=== PATIENT | male | born 1965 | race Caucasian/White ===

== ENCOUNTER 2016-06-24 12:58 | Day surgery (SDC) | payer OTHER ==
--- NOTE | ~2016-06-24 | EGD ---
EGD REPORT [facility] [address] [address] NAME: MIGUEL MCCORMACK : [birth year] STATUS : REG [facility]#: [id number] AGE: 50 ADM/REG DATE : 06/24/16 MR#: [id number] REPORT SERV DATE: 06/24/16 DICTATED BY: PATIENCE NIEVES DATE: 06/24/16 REPORT STATUS : Draft TRANSCRIBED BY: [employer] DATE: 06/24/16 Endoscopy Center Patient Name: Miguel Mccormack Date of : 1965 Attending MD: PATIENCE NIEVES MD Procedure Date No Time: 06/24/2016 Procedure: Upper GI endoscopy Indications: Dysphagia Referring MD: Que Hobson Medicines: Monitored Anesthesia Care Complications: No immediate complications. Procedure: Pre-Anesthesia Assessment: - ASA Grade Assessment: III - A patient with severe systemic disease. After obtaining informed consent, the endoscope was passed under direct vision. Throughout the procedure, the patient's blood pressure, pulse, and oxygen saturations were monitored continuously. The GIF H190 [id number] was introduced through the mouth, and advanced to the second part of duodenum. The upper GI endoscopy was accomplished without difficulty. The patient tolerated the procedure well. Findings: The upper third of the esophagus, middle third of the esophagus and lower third of the esophagus were normal. A small, fungating mass with and with no stigmata of recent bleeding was found at the gastroesophageal junction. The mass was partially obstructing and partially circumferential (involving one-third of the lumen circumference). Biopsies were taken with a cold forceps for histology. The entire examined stomach was normal. On retroflexion mass was visible but difficult to see. The duodenal bulb was normal. The 2nd part of the duodenum was normal. Impression: - Normal upper third of esophagus, middle third of esophagus and lower third of esophagus. - Partially obstructing, rule out malignancy, esophageal tumor was found at the gastroesophageal junction. Biopsied. - Normal stomach. - Normal duodenal bulb. - Normal 2nd part of the duodenum. EGD REPORT [address] [place]. [address] NAME: MIGUEL MCCORMACK : [birth year] STATUS : REG [facility]#: [id number] AGE: 50 ADM/REG DATE : 06/24/16 MR#: [id number] REPORT SERV DATE: 06/24/16 DICTATED BY: PATIENCE NIEVES DATE: 06/24/16 REPORT STATUS : Draft TRANSCRIBED BY: [employer] DATE: 06/24/16 Recommendation: - Patient has a contact number available for emergencies. The signs and symptoms of potential delayed complications were discussed with the patient. Return to normal activities tomorrow. Written discharge instructions were provided to the patient. - Soft diet. - Continue present medications. - Await pathology results. - Perform a CT scan (computed tomography) of chest with contrast and abdomen with contrast at the next available appointment. - Perform an endoscopic ultrasound (EUS) at the next available appointment. Procedure Code(s): --- Professional --- 32696, Esophagogastroduodenoscopy, flexible, transoral; with biopsy, single or multiple Diagnosis Code(s): --- Professional --- D49.0, Neoplasm of unspecified behavior of digestive system R13.10, Dysphagia, unspecified CPT copyright 2013 [employer]. All rights reserved. The codes documented in this report are preliminary and upon trainer review may be revised to meet current compliance requirements. PATIENCE NIEVES MD 06/24/2016 3:30 PM This report has been signed electronically. Number of Addenda: 0 Note Initiated On: 06/24/2016 3:00 PM Scope Withdrawal Time 0 hours 0 minutes 0 seconds
[~2016-06-24 12:58] MED LIST: ALEVE220 MG PO; TAGAMET 200 MG200 MG PO
[2016-10-20] MEDS ORDERED: REST15 PO (18:55)
[2016-10-20] MEDS ORDERED: COMP10B PO (18:55)
[2016-10-20] MEDS ORDERED: ZOFRANODT8 PO (18:56)
[2016-10-20] MEDS ORDERED: PROTONIX PO (18:56)
[2016-10-20] MEDS ORDERED: MAGIC MOUTHWASH (18:57)
[2016-11-02] MEDS ORDERED: HYCET 7.5 MG-3473 ML PO (15:59)
== END 2016-06-24 23:59 | disposition home or self-care (01) ==
LOC: DMU 12:58
PROVIDERS: Internal Medicine Gastroenterology
PROC: 0DB48ZX Excision of Esophagogastric Junction, Via Natural or Artificial Opening Endoscopic, Diagnostic (ICD-10-PCS; principal; 2016-06-24 14:30)
DX: C16.0 Malignant neoplasm of cardia (principal); R13.10 Dysphagia, unspecified; K21.9 Gastro-esophageal reflux disease without esophagitis
CPT/HCPCS: 88305; 88360

== ENCOUNTER 2016-07-05 08:46 | Day surgery (SDC) | payer OTHER ==
--- NOTE | ~2016-07-05 | EGD ---
EGD REPORT [facility] [address] [address] NAME: MIGUEL MCCORMACK : [birth year] STATUS : REG [facility]#: [id number] AGE: 50 ADM/REG DATE : 07/05/16 MR#: [id number] REPORT SERV DATE: 07/05/16 DICTATED BY: MADDI JARVIS DATE: 07/05/16 REPORT STATUS : Draft [facility]ED [facility]: [facility] DATE: 07/05/16 Endoscopy Center Patient Name: Miguel Mccormack Date of : 1965 Attending MD: MADDI JARVIS, Procedure Date No Time: 07/05/2016 Procedure: Upper EUS Indications: Staging of esophageal adenocarcinoma Referring MD: Que Hobson, PATIENCE NIEVES MD, CATHY CARDENAS III, MD Medicines: Monitored Anesthesia Care Complications: No immediate complications. Estimated blood loss: None. Procedure: Pre-Anesthesia Assessment: - ASA Grade Assessment: III - A patient with severe systemic disease. After obtaining informed consent, the endoscope was passed under direct vision. Throughout the procedure, the patient's blood pressure, pulse, and oxygen saturations were monitored continuously. The Endoscope was introduced through the mouth, and advanced to the second part of duodenum. The GIF H190 [id number] was introduced through the mouth, and advanced to the lower third of esophagus. The upper EUS was accomplished without difficulty. The patient tolerated the procedure well. Findings: Endoscopic Finding : A medium-sized, ulcerating mass with and with no stigmata of recent bleeding was found at the gastroesophageal junction and in the cardia. The mass was partially obstructing and circumferential. It was about 2 cm in length. The exam of the stomach was otherwise normal. The cardia and gastric fundus were otherwise normal on retroflexion. The examined duodenum was endoscopically normal. Endosonographic Finding : A hypoechoic mass was found in the gastroesophageal junction. The lesion was circumferential. The endosonographic borders were well-defined. There was sonographic evidence suggesting invasion into the adventitia (Layer 5). Note the lesion was not traversible. No pathologic lymphadenopathy seen. Impression: - Partially obstructing, malignant esophageal tumor was found at the gastroesophageal junction and in the cardia. - Normal examined duodenum. EGD REPORT [address] [address] NAME: MIGUEL MCCORMACK : [birth year] STATUS : REG [facility] [place] PAT#: [id number] AGE: 50 ADM/REG DATE : 07/05/16 MR#: [id number] REPORT SERV DATE: 07/05/16 DICTATED BY: MADDI JARVIS DATE: 07/05/16 REPORT STATUS : Draft TRANSCRIBED BY: [employer] DATE: 07/05/16 - A mass was found in the gastroesophageal junction. This was staged T3 N0 Mx by endosonographic criteria. Recommendation: - Return to previous diet. - Continue present medications. - Return to referring physician. Procedure Code(s): --- Professional --- 77805, Esophagogastroduodenoscopy, flexible, transoral; with endoscopic ultrasound examination limited to the esophagus, stomach or duodenum, and adjacent structures Diagnosis Code(s): --- Professional --- C16.0, Malignant neoplasm of cardia K22.8, Other specified diseases of esophagus C15.9, Malignant neoplasm of esophagus, unspecified CPT copyright 2013 [employer]. All rights reserved. The codes documented in this report are preliminary and upon personal financial advisor review may be revised to meet current compliance requirements. Attending Participation: I personally performed the entire procedure. MADDI JARVIS, 07/05/2016 2:24 PM Number of Addenda: 1 Note Initiated On: 07/05/2016 1:00 PM Scope Withdrawal Time 0 hours 0 minutes 0 seconds Addendum Number: 1 Addendum Date: 07/05/2016 2:25 PM Impression T3N0MX tumor of GE juction. Resume prior diet and meds. Follow up with referring physician. MADDI JARVIS, 07/05/2016 2:26 PM EGD REPORT [facility] [address] [place] [address] NAME: MIGUEL MCCORMACK : [birth year] STATUS : REG [facility] [place] PAT#: [id number] AGE: 50 ADM/REG DATE : 07/05/16 MR#: [id number] REPORT SERV DATE: 07/05/16 DICTATED BY: MADDI JARVIS DATE: 07/05/16 REPORT STATUS : Draft [facility]ANSCRIBED BY: [facility] DATE: 07/05/16 [facility] [address] [address]
--- NOTE | ~2016-07-05 | EGD ---
EGD REPORT [facility] [address] [address] NAME: MIGUEL MCCORMACK : [birth year] STATUS : REG [facility] [place] PAT#: [id number] AGE: 50 ADM/REG DATE : 07/05/16 MR#: [id number] REPORT SERV DATE: 07/05/16 DICTATED BY: MADDI JARVIS DATE: 07/05/16 REPORT STATUS : Draft TRANSCRIBED BY: [employer] DATE: 07/05/16 Endoscopy Center Patient Name: Miguel Mccormack Date of : 1965 Attending MD: MADDI JARVIS, Procedure Date No Time: 07/05/2016 Procedure: Upper EUS Indications: Staging of esophageal adenocarcinoma Referring MD: Que Hobson, PATIENCE NIEVES MD, CATHY ACRDENAS III, MD Medicines: Monitored Anesthesia Care Procedure: Pre-Anesthesia Assessment: - ASA Grade Assessment: III - A patient with severe systemic disease. After obtaining informed consent, the endoscope was passed under direct vision. Throughout the procedure, the patient's blood pressure, pulse, and oxygen saturations were monitored continuously. The Endoscope was introduced through the mouth, and advanced to the second part of duodenum. The GIF H190 [id number] was introduced through the mouth, and advanced to the lower third of esophagus. The upper EUS was accomplished without difficulty. The patient tolerated the procedure well. Findings: Endoscopic Finding : A medium-sized, ulcerating mass with and with no stigmata of recent bleeding was found at the gastroesophageal junction and in the cardia. The mass was partially obstructing and circumferential. It was about 2 cm in length. The exam of the stomach was otherwise normal. The cardia and gastric fundus were otherwise normal on retroflexion. The examined duodenum was endoscopically normal. Endosonographic Finding : A hypoechoic mass was found in the gastroesophageal junction. The lesion was circumferential. The endosonographic borders were well-defined. There was sonographic evidence suggesting invasion into the adventitia (Layer 5). Note the lesion was not traversible. No pathologic lymphadenopathy seen. Procedure Code(s): --- Professional --- 47493, Esophagogastroduodenoscopy, flexible, transoral; with endoscopic ultrasound examination limited to the esophagus, stomach or duodenum, and adjacent structures EGD REPORT [facility] [address] [address] NAME: MIGUEL MCCORMACK : [birth year] STATUS : REG [facility] [place] PAT#: [id number] AGE: 50 ADM/REG DATE : 07/05/16 MR#: [id number] REPORT SERV DATE: 07/05/16 DICTATED BY: MADDI JARVIS DATE: 07/05/16 REPORT STATUS : Draft TRANSCRIBED BY: [employer] DATE: 07/05/16 Diagnosis Code(s): --- Professional --- C15.9, Malignant neoplasm of esophagus, unspecified CPT copyright 2013 [employer]. All rights reserved. The codes documented in this report are preliminary and upon parts sales representative review may be revised to meet current compliance requirements. Attending Participation: I personally performed the entire procedure. MADDI JARVIS, 07/05/2016 2:24 PM Number of Addenda: 0 Note Initiated On: 07/05/2016 1:00 PM Scope Withdrawal Time 0 hours 0 minutes 0 seconds [address] [address]
--- NOTE | ~2016-07-05 | EGD ---
EGD REPORT [facility] [address] [address] NAME: MIGUEL MCCORMACK : [birth year] STATUS : REG [facility] [place] PAT#: [id number] AGE: 50 ADM/REG DATE : 07/05/16 MR#: [id number] REPORT SERV DATE: 07/05/16 DICTATED BY: MADDI JARVIS DATE: 07/05/16 REPORT STATUS : Draft TRANSCRIBED BY: [employer] DATE: 07/05/16 Endoscopy Center Patient Name: Miguel Mccormack Date of : 1965 Attending MD: MADDI JARVIS, Procedure Date No Time: 07/05/2016 Procedure: Upper EUS Indications: Staging of esophageal adenocarcinoma Referring MD: Que Hobson, PATIENCE NIEVES MD, CATHY CARDENAS III, MD Medicines: Monitored Anesthesia Care Procedure: Pre-Anesthesia Assessment: - ASA Grade Assessment: III - A patient with severe systemic disease. After obtaining informed consent, the endoscope was passed under direct vision. Throughout the procedure, the patient's blood pressure, pulse, and oxygen saturations were monitored continuously. The Endoscope was introduced through the mouth, and advanced to the second part of duodenum. The GIF H190 [id number] was introduced through the mouth, and advanced to the lower third of esophagus. The upper EUS was accomplished without difficulty. The patient tolerated the procedure well. Findings: Endoscopic Finding : A medium-sized, ulcerating mass with and with no stigmata of recent bleeding was found at the gastroesophageal junction and in the cardia. The mass was partially obstructing and circumferential. It was about 2 cm in length. The exam of the stomach was otherwise normal. The cardia and gastric fundus were otherwise normal on retroflexion. The examined duodenum was endoscopically normal. Endosonographic Finding : A hypoechoic mass was found in the gastroesophageal junction. The lesion was circumferential. The endosonographic borders were well-defined. There was sonographic evidence suggesting invasion into the adventitia (Layer 5). Note the lesion was not traversible. No pathologic lymphadenopathy seen. Procedure Code(s): --- Professional --- 23003, Esophagogastroduodenoscopy, flexible, transoral; with endoscopic ultrasound examination limited to the esophagus, stomach or duodenum, and adjacent structures EGD REPORT [address] [address] NAME: MIGUEL MCCORMACK : [birth year] STATUS : REG [facility] [place] PAT#: [id number] AGE: 50 ADM/REG DATE : 07/05/16 MR#: [id number] REPORT SERV DATE: 07/05/16 DICTATED BY: MADDI JARVIS DATE: 07/05/16 REPORT STATUS : Draft TRANSCRIBED BY: [employer] DATE: 07/05/16 Diagnosis Code(s): --- Professional --- C15.9, Malignant neoplasm of esophagus, unspecified CPT copyright 2013 [employer] [place]. All rights reserved. The codes documented in this report are preliminary and upon coder operator review may be revised to meet current compliance requirements. Attending Participation: I personally performed the entire procedure. MADDI JARVIS, 07/05/2016 2:24 PM Number of Addenda: 1 Note Initiated On: 07/05/2016 1:00 PM Scope Withdrawal Time 0 hours 0 minutes 0 seconds Addendum Number: 1 Addendum Date: 07/05/2016 2:25 PM Impression T3N0MX tumor of GE juction. Resume prior diet and meds. Follow up with referring physician. MADDI MATHEUS, 07/05/2016 2:26 PM [address] [place] [address]
[2016-10-20] MEDS ORDERED: REST15 PO (18:55)
[2016-10-20] MEDS ORDERED: COMP10B PO (18:55)
[2016-10-20] MEDS ORDERED: PROTONIX PO (18:56)
[2016-10-20] MEDS ORDERED: ZOFRANODT8 PO (18:56)
[2016-10-20] MEDS ORDERED: MAGIC MOUTHWASH (18:57)
[2016-11-02] MEDS ORDERED: HYCET 7.5 MG-3473 ML PO (15:59)
== END 2016-07-05 23:59 | disposition home or self-care (01) ==
LOC: DMU 08:46
PROVIDERS: Internal Medicine Gastroenterology
PROC: BD41ZZZ Ultrasonography of Esophagus (ICD-10-PCS; 2016-07-05)
PROC: 0DJ08ZZ Inspection of Upper Intestinal Tract, Via Natural or Artificial Opening Endoscopic (ICD-10-PCS; principal; 2016-07-05 13:30)
DX: C16.0 Malignant neoplasm of cardia (principal); K22.8 Other specified diseases of esophagus; K21.9 Gastro-esophageal reflux disease without esophagitis; F17.210 Nicotine dependence, cigarettes, uncomplicated
CPT/HCPCS: C1725

== ENCOUNTER 2016-07-06 05:03 | Inpatient (IN) | payer OTHER ==
[2016-07-05 10:49] LABS: BASOPHILS 0.6 %; BASOPHILS ABSOLUTE 0.05 10/3/uL (0.0-0.16); EOSINOPHILS 2.6 %; EOSINOPHILS ABSOLUTE 0.22 10/3/uL (0.0-0.53); HEMATOCRIT 42.8 % (40.0-51.0); IMMATURE GRANULOCYTES 0.2 %; IMMATURE GRANULOCYTES ABSOLUTE 0.02 10/3/uL (0.0-0.11); LYMPHOCYTES 31.1 %; LYMPHOCYTES ABSOLUTE 2.66 10/3/uL (0.67-4.30); MEAN CORPUSCULAR HEMOGLOB 32.8 pg (26.0-34.0); MEAN CORPUSCULAR VOLUME 93.7 fL (80-100); MEAN PLATELET VOLUME 10.3 fL (9.2-13.0); MONOCYTES 9.2 %; MONOCYTES ABSOLUTE 0.79 10/3/uL (0.21-1.20); NEUTROPHILS 56.3 %; NEUTROPHILS ABSOLUTE 4.81 10/3/uL (2.02-8.40); PLATELET COUNT 342 10/3/uL (150-400); RBC DISTRIBUTION WIDTH 13.4 % (12.0-16.0); RED CELL COUNT 4.57 10/6/uL (4.7-6.1); WHITE BLOOD CELLS 8.6 10/3/uL (4.5-10.5)
[2016-07-05 10:51] LABS: MANUAL DIFF NO %
[2016-07-05 11:01] LABS: CALCIUM, SERUM 8.9 MG/DL (8.5-10.4); CHLORIDE, SERUM 108 MMOL/L (96-112); CO2 (CARBON DIOXIDE) 30 MMOL/L (24-34); CREATININE 0.94 MG/DL (0.70-1.30); GFR AFRICAN AMERICAN 111 ML/MIN (>=60); GFR NON AFRICAN AMERICAN 95 ML/MIN (>=60); POTASSIUM, SERUM 4.5 MMOL/L (3.5-5.3); SGOT(AST) 14 U/L (5-40); SGPT(ALT) 28 U/L (5-65); SODIUM, SERUM 144 MMOL/L (135-148); TOTAL BILIRUBIN 0.4 MG/DL (0-1.2); TOTAL PROTEIN 7.6 G/DL (6.0-8.5)
[2016-07-05 11:02] LABS: A/G RATIO 1.1 (0.7-1.9); ALKALINE PHOSPHATASE 86 U/L (45-117); BUN (BLOOD UREA NITROGEN) 12 MG/DL (6-23); GLOBULIN 3.6 G/DL (2.5-4.1); GLUCOSE, SERUM 94 MG/DL (60-99)
--- NOTE | ~2016-07-06 | CONSULT ---
Radiation Oncology Consult [address] [address] NAME: MIGUEL CMCORMACK : [birth year] STATUS : ADM IN PAT#: [id number] AGE: 50 ADM/REG DATE : 07/06/16 MR#: [id number] REPORT SERV DATE: 07/08/16 DICTATED BY: KRISTEN RAMOS DATE: 07/08/16 REPORT STATUS : Draft TRANSCRIBED BY: [employer] DATE: 07/08/16 RADIATION ONCOLOGY CONSULTATION IN-HOUSE CONSULTATION HISTORY OF PRESENT ILLNESS: Mr. Mccormack is a 50-year-old gentleman, who presents with progressive dysphagia and a 30-pound weight loss. He recently underwent an EGD by Dr. Hernandez that discovered a suspicious lesion involving the GE junction. Biopsy was positive for adenocarcinoma. CT scans of the chest, abdomen, and pelvis revealed nodular thickening of the GE junction and no evidence of regional lymphadenopathy. There was a 1.8 x 1.4 x 1.8 cm soft tissue density along the serosal surface of the posterior gastric fundus thought to be benign. In addition, there was a 4-mm left lower lobe pulmonary nodule. The patient will be undergoing a PET scan later today. He also recently underwent placement of a jejunostomy tube and port by Dr. Peacock. The patient has been referred for consideration of neoadjuvant treatment prior to esophagectomy. He has already seen Dr. Julio César Robins in Medical Oncology. In consultation today, Mr. Mccormack reports persistent dysphagia. He cannot swallow solids, but he can still swallow his spit and most liquids. He denies any significant epigastric pain. MEDICATIONS: See MAR. ALLERGIES: NO KNOWN DRUG ALLERGIES. PAST MEDICAL HISTORY: Significant for smoking history. FAMILY HISTORY: Negative for cancer. 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 He just recently stopped smoking. He continues to drink up to two drinks per day. REVIEW OF SYSTEMS: An extended review of systems was performed, which was negative except as mentioned in HPI. PHYSICAL FINDINGS: GENERAL: Reveals a pleasant middle-aged white male, in no apparent distress. There is no cervical or supraclavicular lymphadenopathy. ABDOMEN: Thin and soft. A short incision is present from the jejunostomy tube. The tube is in place. The right-sided Port-A-Cath is noted in the right infraclavicular region. EXTREMITIES: Without cyanosis, clubbing, or edema. PSYCH: Alert and oriented x3. NEUROLOGIC: Grossly intact. X-RAYS: CT scan of the chest, abdomen, and pelvis dated 06/27/2016 was personally reviewed by me. 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 Radiation Oncology Consult [address] [address] NAME: MIGUEL MCCORMACK : [birth year] STATUS : ADM IN PAT#: [id number] AGE: 50 ADM/REG DATE : 07/06/16 MR#: [id number] REPORT SERV DATE: 07/08/16 DICTATED BY: KRISTEN RAMOS DATE: 07/08/16 REPORT STATUS : Draft TRANSCRIBED BY: AN[employer]EL[employer] DATE: 07/08/16 RECOMMENDATIONS: I suspect that the PET scan will reveal no surprises, therefore, I am comfortable in proceeding with chemoradiation as neoadjuvant treatment for this localized esophageal cancer. Radiation therapy will consist of 5040 cGy in [address] Robins has already decided on weekly chemotherapy for this gentleman. Esophagectomy with followup in approximately six weeks following completion of treatment. Radiation therapy treatment planning was performed today in anticipation of beginning both chemo and radiation on 07/18/2016. INFORMED CONSENT: The benefits, rationale, and possible complications of proposed treatment were discussed. The patient consents to treatment as described. NICHOL/ANGELINA Kristen Ramos M.D. / [id number] CC: Elsie Bermeo III, M.D. James Scott Manton, M.D.
--- NOTE | ~2016-07-06 | PREOPHP ---
PreOp History and Physical [address] [place]. [address] NAME: MIGUEL MEYER : [birth year] STATUS : PRE IN PAT#: [id number] AGE: 50 ADM/REG DATE : MR#: [id number] REPORT SERV DATE: 07/06/16 DICTATED BY: CATHY PEACOCK III DATE: 07/05/16 REPORT STATUS : Draft TRANSCRIBED BY: [employer] DATE: 07/05/16 ADDENDUM: This patient in addition to the above procedure, will undergo subclavian vein Port A-Cath placement. This additional procedure, the risks, benefits, and alternatives, including but not limited to the risk for bleeding, infection, pneumothorax, air embolus, pericardial tamponade, failure of the port to function, infection of the port or subclavian vein thrombosis requiring removal of the port, dislodgement of the Port-A-Cath tubing requiring extraction, and unforeseen complications including deep venous thrombosis, pulmonary embolus, myocardial infarction, stroke, pneumonia, and , have been explained to the patient prior to surgery. His questions were answered. He understands the risks and agrees to surgery as planned. SHAD/ANGELINA Cathy Peacock III, M.D. / [id number] CC: Cathy Peacock III, M.D. DAILY,DENIS
--- NOTE | ~2016-07-06 | PREOPHP ---
PreOp History and Physical [address] [place]. [address] NAME: MIGUEL MEYER : [birth year] STATUS : PRE IN PAT#: [id number] AGE: 50 ADM/REG DATE : MR#: [id number] REPORT SERV DATE: 07/05/16 DICTATED BY: CATHY PEACOCK III DATE: 06/29/16 REPORT STATUS : Draft TRANSCRIBED BY: [employer] DATE: 06/29/16 HISTORY OF PRESENT ILLNESS: This 50-year-old male comes to the operating room for jejunal feeding tube placement to allow for enteral nutrition for support for esophageal cancer. The patient complains five-month history of severe dysphagia. He has lost 32 pounds of weight in the last four months. His workup reveals an adenocarcinoma of the distal esophagus. His workup shows no evidence of metastatic disease. His endoscopy showed a partly obstructing cancer of the distal esophagus. He comes now for a jejunal feeding tube placement to allow for enteral nutrition. The patient is felt to be a candidate for definitive surgery after neoadjuvant chemotherapy and radiation therapy. PAST MEDICAL HISTORY: Unremarkable. ALLERGIES: NONE. MEDICATIONS: None regularly. SOCIAL HISTORY: The patient has a previous history of tobacco use. He has no history of alcohol use. REVIEW OF SYSTEMS: The patient complains of weight loss and back pain. His 14-point review of system is otherwise unremarkable. OBJECTIVE PHYSICAL EXAM: GENERAL: This is a healthy-appearing male, in no acute distress. He is alert and oriented x3. VITAL SIGNS: Blood pressure 120/77, pulse 71, temperature 98.4. HEENT: Unremarkable. Cranial nerves II through XII are normal. NECK: Unremarkable without adenopathy. LUNGS: Clear. CARDIAC: Normal. ABDOMEN: Soft. Nontender. No masses. EXTREMITIES: Normal. LABORATORY DATA: Upper endoscopy shows a fungating mass in the distal esophagus partially obstructing and partially circumferential. Biopsy shows severe adenocarcinoma. CT scan of the abdomen, chest, and pelvis shows a single 0.4 cm lateral left lower lobe pulmonary nodule, unlikely representing solitary site of metastasis. Followup CT in six months as recommended by the radiologist, but a PET scan is pending at this time. There is noted to be an irregular nodular thickening of the distal esophagus consistent with the patient's esophageal cancer. There is noted to be a 1.8 x 1.4 x 1.8 cm mass along the serosal surface of the posterior gastric fundus, thought most likely to be benign. ASSESSMENT: A 50-year-old male with biopsy-proven cancer of the distal esophagus. PLAN: The patient comes to the operating room now for jejunal feeding tube placement to PreOp History and Physical [address] [address] NAME: MIGUEL MEYER : [birth year] STATUS : PRE IN PAT#: [id number] AGE: 50 ADM/REG DATE : MR#: [id number] REPORT SERV DATE: 07/05/16 DICTATED BY: CATHY PEACOCK III DATE: 06/29/16 REPORT STATUS : Draft TRANSCRIBED BY: ANGELINA DATE: 06/29/16 allow for enteral support. This procedure, the risks, benefits, and alternatives, including not limited to the risk for bleeding, infection, enterotomy, injury to abdominal structure, postop small bowel obstruction, ileus, incisional hernia, dehiscence, malfunction of the tube, leakage around the tube, occlusion of the tube requiring revision or replacement, and unforeseen complications including deep venous thrombosis, pulmonary embolus, myocardial infarction, stroke, pneumonia, and , have been explained to the patient prior to surgery. His questions were answered. He clearly understands the risks and agrees to surgery as planned. SHAD/ANGELINA Cathy Peacock III, M.D. / [id number]
--- NOTE | ~2016-07-06 | DS ---
Discharge Summary [facility] [address] [place]. 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 CONSULTATIONS: Ernesto aRmos M.D. PROCEDURES PERFORMED: 1. Right subclavian vein Port-A-Cath placement with fluoroscopy and jejunal feeding tube placement, 07/06/2016. 2. PET whole body scan, 07/08/2016. MEDICATIONS: Aleve 440 mg every 12 hours as needed, Tagamet 200 mg daily as needed, and Percocet 7.5/325 one three times daily as needed. CONDITION AT DISCHARGE: Upon discharge, he did appear to be doing well and had no complaints. DISPOSITION: He had been discharged home to continue a full liquid diet with activity as tolerated. He was to follow up with me in the office and was to call my office for the appointment for two weeks. Home health care was in place upon discharge. HOSPITAL COURSE: This 50-year-old male had complaints of a 5-month history of severe dysphagia. He had lost 32 pounds of weight in the last four months. 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 His workup showed no evidence of metastatic disease. His endoscopy showed a partly obstructing cancer of the distal esophagus. He came in for jejunal feeding tube placement to allow for enteral nutrition. He was felt to be a candidate for definitive surgery after neoadjuvant chemotherapy and radiation therapy. He was admitted for surgery and further evaluation. Upon admission to the hospital, he had been taken to the operating room where he did undergo the above procedure. He tolerated this well and was transferred to the recovery room. On postop day #1, he was afebrile and his vital signs were stable and he had no complaints. He was begun on J-tube feeding. On postop day #2, he had stated that he felt well and wanted to go home. He was tolerating J-tube feedings well and had no new complaints. On 07/08/2016, he did continue to do well and was tolerating J-tube feedings without difficulty. They were increased to the goal rate, and he did state that he was feeling better with less pain. He had also been seen on 07/08/[address] Ernesto Ramos for Radiation Oncology consultation. He did also undergo a PET scan, and Dr. Ramos felt that the PET scan would reveal no surprises and did state that he would be comfortable in proceeding with chemoradiation as neoadjuvant treatment for this localized esophageal cancer. His radiation therapy was to consist of 5040 cGy in [address] Robins had already decided on weekly chemotherapy for this patient. Esophagectomy was to follow up in approximately six weeks following completion of his treatment. The benefits, rationale, and possible complications of the proposed treatment had been discussed with the patient and he did consent to treatment as described. He did remain in stable condition and was then discharged on 07/09/2016 with the above instructions. Discharge Summary [address] [address] NAME: MIGUEL MEYER : 69 STATUS : DIS IN PAT#: [id number] AGE: 50 ADM/REG DATE : 07/06/16 MR#: [id number] REPORT SERV DATE: 07/16/16 DICTATED BY: CATHY CARDENAS III DATE: 07/15/16 REPORT STATUS : Draft TRANSCRIBED BY: JUAN LUISL DATE: 07/15/16 Information collected by: Ingrid WileyIRicardoT. I submit the above information as my discharge summary. RW/JUAN LUISL Cathy Cardenas III, M.D. / [id number] CC: Elsie Bermeo III, MD Eric Ellis, M.D. Derek W Holland, M.D.
--- NOTE | ~2016-07-06 | OP ---
Record Of Operation [facility] [address] [place]. [address] NAME: MIGUEL MEYER : 69 STATUS : ADM IN PAT#: [id number] AGE: 50 ADM/REG DATE : 07/06/16 MR#: [id number] REPORT SERV DATE: 07/06/16 DICTATED BY: CATHY CARDENAS III DATE: 07/06/16 REPORT STATUS : Draft TRANSCRIBED BY: MODL DATE: 07/06/16 DATE OF PROCEDURE: 07/06/2016 PREOPERATIVE DIAGNOSES: T3 esophageal cancer with need for enteral feeding due to severe weight loss and esophageal obstruction and need for Port-A-Cath placement to allow for chronic IV access for chemotherapy. POSTOPERATIVE DIAGNOSES: T3 esophageal cancer with need for enteral feeding due to severe weight loss and esophageal obstruction and need for Port-A-Cath placement to allow for chronic IV access for chemotherapy. PROCEDURE: Right subclavian vein Port-A-Cath placement with fluoroscopy and jejunal feeding tube placement. SURGEON: Cathy Cardenas M.D. ANESTHESIA: General with intubation. COMPLICATIONS: None. ESTIMATED BLOOD LOSS: 5 mL. SPECIMENS: None. DRAINS: None. LAP AND SPONGE COUNT: Correct x3. BRIEF HISTORY: This 50-year-old male was recently diagnosed with distal esophageal cancer associated with high-grade esophageal obstruction and weight loss. His workup showed no evidence for metastatic disease. It was felt that Port-A-Cath placement was indicated to allow for chronic IV access for chemotherapy and jejunal feeding tube placement was indicated to allow for enteral nutrition during this time. The patient was felt to be a candidate for definitive [place] esophagogastrectomy once he has completed his preoperative treatment. Regarding the surgery, the procedure, risks, benefits, and alternatives, including but not limited to, the risk for bleeding, infection, pneumothorax, air embolus, pericardial tamponade, dislodgement of tubing requiring extraction, failure of the Port-A-Cath to function, infection of the port, or subclavian vein thrombosis requiring removal of the port, dislodgement of tubing requiring extraction, and unforeseen complications including deep venous thrombosis, pulmonary embolus, myocardial infarction, stroke, pneumonia, and , were explained to the patient prior to surgery. Regarding the jejunal feeding tube placement, the risk for bleeding, infection, enterotomy, injury to abdominal structure, postop small bowel obstruction, ileus, incisional hernia, dehiscence, failure of the tube to function, migration or occlusion of the tube requiring revision or replacement, leakage Record Of Operation [facility] [address] [place]. [address] NAME: MIGUEL MEYER : 69 STATUS : ADM IN PAT#: [id number] AGE: 50 ADM/REG DATE : 07/06/16 MR#: [id number] REPORT SERV DATE: 07/06/16 DICTATED BY: CATHY CARDENAS III DATE: 07/06/16 REPORT STATUS : Draft TRANSCRIBED BY: MODRadha DATE: 07/06/16 around the tube requiring revision or replacement, and unforeseen complications including deep venous thrombosis, pulmonary embolus, myocardial infarction, stroke, pneumonia, and , were fully explained to the patient prior to surgery. His questions were answered. He understood the risks and agreed to surgery as planned. DESCRIPTION OF PROCEDURE: After being properly identified, and after discussing the risks and benefits of surgery with him again in the preoperative area, he was taken to the operating room and placed in the supine position on the operating room table. General anesthesia was administered. He was intubated without difficulty. The abdomen and chest were prepped and draped sterilely in the usual fashion. After an appropriate "time-out" per JCAHO standards, an 18-gauge needle was used to identify the right subclavian vein. The vein was identified on the first pass of the needle. A guidewire was passed through the needle and the needle was removed. Fluoroscopy was performed, confirming the tip of the guidewire to be in the correct position in the superior vena cava. A small transverse incision was then made at the exit site of the guidewire from the skin. A subcutaneous infraclavicular pocket was made of the appropriate size for the Port-A-Cath housing. The Port-A-Cath housing and tubing were assembled, flushed with a heparin solution, and the tubing cut to the appropriate length. The introducer was then placed over the guidewire as the guidewire and inner dilator were removed. The Port-A-Cath tubing was then passed through the sheath as the sheath was peeled away. This went very smoothly. The Port-A-Cath housing was positioned in the infraclavicular pocket. Repeat fluoroscopy was performed, confirming the tip of the Port-A-Cath tubing to be in the correct position in the superior vena cava. The port was accessed with a Guerrero needle, it was noted to aspirate blood easily. It was then flushed with heparin solution, noted to flush easily. Hemostasis was assured. The port was secured to the chest wall with several 2-0 silk sutures. The subcutaneous tissue was closed with a running 3-0 Vicryl suture and the skin was closed with running subcuticular 4-0 Monocryl stitch. The incision was injected with 0.5% Marcaine. We then turned our attention to the abdominal wall. A small vertical incision was made in the midline, several centimeters above the umbilicus. The incision was continued through the subcutaneous tissue. Hemostasis was controlled with cautery. The incision was continued through the fascia. The abdominal cavity was entered. We identified the proximal jejunum just beyond the ligament of Treitz. A #14-Gu[place]ian jejunal feeding tube was placed through a separate stab wound to the left of the incision. A 3-0 silk pursestring was placed along the antimesenteric border of the small bowel. A small opening was then made in the center of the pursestring in the antimesenteric border of the jejunum. The feeding tube was passed through this, the balloon was inflated. The 3-0 silk pursestring was secured around the exit site of the catheter. In addition, several interrupted 3-0 silk sutures were placed in a Witzel fashion at the new exit site of the catheter from the bowel lumen. This resulted in good closure of the exit site. This new exit site was then secured to the underside of the abdominal wall with several 3-0 silk sutures. Upon completion of this, the catheter was in good position. The jejunum was not twisted or kinked in any way. It was not under tension. The area was irrigated copiously with saline. Hemostasis was assured. The fascia was closed with a running looped #1 PDS suture. The subcutaneous tissue was closed with a running 3-0 chromic suture over a Barry drain which was brought through the inferior aspect of the incision. The skin was closed with running subcuticular 4-0 Monocryl stitch. The incision was injected with 0.5% Marcaine. Dressings were applied. Anesthesia Record Of [facility] [address] [place]. [address] NAME: MIGUEL MEYER : [birth year] STATUS : ADM IN [facility]#: [id number] AGE: 50 ADM/REG DATE : 07/06/16 MR#: [id number] REPORT SERV DATE: 07/06/16 DICTATED BY: CATHY CARDENAS III DATE: 07/06/16 REPORT STATUS : Draft TRANSCRIBED BY: MODL DATE: 07/06/16 was reversed, and the patient was taken to the recovery room in stable condition. He tolerated the procedure well. His family was informed the results of surgery. The patient will remain in the hospital for postoperative care. RHJ/ANGELINA Cathy Cardenas III, M.D. / [id number] CC: Elsie Bermeo III, M.D.
[2016-07-07 06:05] LABS: BASOPHILS 0.1 %; BASOPHILS ABSOLUTE 0.02 10/3/uL (0.0-0.16); EOSINOPHILS 0.4 %; EOSINOPHILS ABSOLUTE 0.06 10/3/uL (0.0-0.53); HEMOGLOBIN 12.5 g/dL (13.6-17.8); IMMATURE GRANULOCYTES 0.2 %; IMMATURE GRANULOCYTES ABSOLUTE 0.03 10/3/uL (0.0-0.11); LYMPHOCYTES 16.3 %; LYMPHOCYTES ABSOLUTE 2.49 10/3/uL (0.67-4.30); MEAN CORPUS HGB CONC 34.6 g/dL (32.0-36.0); MEAN CORPUSCULAR HEMOGLOB 32.4 pg (26.0-34.0); MEAN CORPUSCULAR VOLUME 93.5 fL (80-100); MEAN PLATELET VOLUME 10.1 fL (9.2-13.0); MONOCYTES 9.8 %; MONOCYTES ABSOLUTE 1.49 10/3/uL (0.21-1.20); NEUTROPHILS 73.2 %; NEUTROPHILS ABSOLUTE 11.18 10/3/uL (2.02-8.40); PLATELET COUNT 296 10/3/uL (150-400); RBC DISTRIBUTION WIDTH 13.1 % (12.0-16.0); RED CELL COUNT 3.86 10/6/uL (4.7-6.1)
[2016-07-07 06:06] LABS: HEMATOCRIT 36.1 % (40.0-51.0); MANUAL DIFF NO %; WHITE BLOOD CELLS 15.3 10/3/uL (4.5-10.5)
[2016-07-07 06:20] LABS: BUN (BLOOD UREA NITROGEN) 10 MG/DL (6-23); CALCIUM, SERUM 8.2 MG/DL (8.5-10.4); CHLORIDE, SERUM 109 MMOL/L (96-112); CO2 (CARBON DIOXIDE) 29 MMOL/L (24-34); CREATININE 0.98 MG/DL (0.70-1.30); GFR AFRICAN AMERICAN 105 ML/MIN (>=60); GFR NON AFRICAN AMERICAN 91 ML/MIN (>=60); POTASSIUM, SERUM 4.1 MMOL/L (3.5-5.3); SODIUM, SERUM 143 MMOL/L (135-148)
[2016-07-07 06:21] LABS: GLUCOSE, SERUM 114 MG/DL (60-99)
[2016-07-09] MEDS ORDERED: PERCOCET 7.5/321 TAB PO (10:16)
[2016-10-20] MEDS ORDERED: REST15 PO (18:55)
[2016-10-20] MEDS ORDERED: COMP10B PO (18:55)
[2016-10-20] MEDS ORDERED: PROTONIX PO (18:56)
[2016-10-20] MEDS ORDERED: ZOFRANODT8 PO (18:56)
[2016-10-20] MEDS ORDERED: MAGIC MOUTHWASH (18:57)
[2016-11-02] MEDS ORDERED: HYCET 7.5 MG-3473 ML PO (15:59)
== END 2016-07-09 14:48 | disposition home health service (06) | DRG 376 ==
LOC: SDC/OF 05:03 → PACU 08:16 → 5SO 12:47
PROVIDERS: Surgery
PROC: 02HV33Z Insertion of Infusion Device into Superior Vena Cava, Percutaneous Approach (ICD-10-PCS; 2016-07-06)
PROC: B5181ZA Fluoroscopy of Superior Vena Cava using Low Osmolar Contrast, Guidance (ICD-10-PCS; 2016-07-06)
PROC: 0DJ08ZZ Inspection of Upper Intestinal Tract, Via Natural or Artificial Opening Endoscopic (ICD-10-PCS; 2016-07-06)
PROC: BD41ZZZ Ultrasonography of Esophagus (ICD-10-PCS; 2016-07-06)
PROC: 0JHD3XZ Insertion of Tunneled Vascular Access Device into Right Upper Arm Subcutaneous Tissue and Fascia, Percutaneous Approach (ICD-10-PCS; principal; 2016-07-06 06:45)
PROC: 0DHA0UZ Insertion of Feeding Device into Jejunum, Open Approach (ICD-10-PCS; 2016-07-06 06:45)
PROC: 3E0H76Z Introduction of Nutritional Substance into Lower GI, Via Natural or Artificial Opening (ICD-10-PCS; 2016-07-07)
DX: C15.5 Malignant neoplasm of lower third of esophagus (principal); R13.10 Dysphagia, unspecified; Z87.891 Personal history of nicotine dependence; K21.9 Gastro-esophageal reflux disease without esophagitis
CPT/HCPCS: 71010; 71020; 77001; 77334; 78815; 80048; 80053; 82962; 85025; 93005; A9270-GY; A9552; C1725; C1751; J0690; J1170; J1885; J2250; J2270; J2405; J2710; J3010